=== PATIENT | female | born 1940 | race Caucasian/White ===

== ENCOUNTER 2017-10-15 10:50 | Outpatient (CLI) | payer MEDICARE | END 2017-10-15 10:51 | disposition home or self-care (01) | LOC: BICMAMMO 10:50 | PROVIDERS: ATTEND Obstetrics & Gynecology | DX: Z12.31 Encounter for screening mammogram for malignant neoplasm of breast (principal); Z13.820 Encounter for screening for osteoporosis; Z80.3 Family history of malignant neoplasm of breast | CPT/HCPCS: 77063; 77067; 77080 ==

== ENCOUNTER 2019-01-05 12:47 | Outpatient (CLI) | payer MEDICARE ==
--- NOTE | 2019-01-05 17:27 | CT ---
CT BRAIN WITHOUT CONTRAST: Date: 01/05/19 HISTORY: Vision changes, intractable headache. FINDINGS: No evidence of infarct, hemorrhage, midline shift, or abnormal extra-axial fluid collections are seen . There are changes of chronic small vessel ischemic disease in the periventricular white matter. 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 No abnormal postcontrast enhancement is not ed. The bony calvarium is intact. The visualized paranasal sinuses and mastoid air cells are well aer ated. IMPRESSION: No CT evidence of acute intracranial process or mass. POS: [facility]
== END 2019-01-05 12:48 | disposition home or self-care (01) ==
LOC: SCSCT 12:47
PROVIDERS: ATTEND Family Medicine
DX: H53.9 Unspecified visual disturbance (principal); R51 Headache
CPT/HCPCS: 70470; 82565

== ENCOUNTER 2023-06-11 14:35 | Outpatient (CLI) | payer MEDICARE | END 2023-06-11 14:36 | disposition home or self-care (01) | LOC: SCSRAD 14:35 | PROVIDERS: ATTEND Family Medicine | DX: M25.512 Pain in left shoulder (principal) ==